=== PATIENT | female | born 1965 | race Caucasian/White ===

== ENCOUNTER 2016-06-01 11:18 | Inpatient (IN) | payer OTHER ==
[~2016-06-01] VITALS: Ht 154.9 cm; Wt 59.9 kg
[2016-06-01 13:07] LABS: BASOPHIL % 0.4 % (0-2); RED CELL DISTRIBUTION WIDTH 12.9 % (11.5-14.5)
[2016-06-01 13:08] LABS: PLATELET COUNT 460 x10^3mcL (130-400)
[2016-06-01 13:18] LABS: CALCIUM 8.6 mg/dL (8.5-10.1); CARBON DIOXIDE 27.8 mmol/L (21-32); CHLORIDE SERUM 101 mmol/L (98-107); CREATININE SERUM 0.5 mg/dL (0.6-1.0); GFR1 > 60 mL/min; GLUCOSE SERUM 301 mg/dL (74-106); POTASSIUM SERUM 3.5 mmol/L (3.5-5.1); SODIUM SERUM 137 mmol/L (136-145)
[2016-06-01 13:23] LABS: ALKALINE PHOSPHATASE 117 U/L (46-116); ALT/SGPT 20 U/L (14-59); AST/SGOT 4 U/L (15-37); BILIRUBIN TOTAL 0.58 mg/dL (0.20-1.00); HDL CHOLESTEROL 53 mg/dL (40-60); MAGNESIUM 1.6 mg/dL (1.8-2.4); PHOSPHOROUS 2.8 mg/dL (2.5-4.9); TOTAL PROTEIN, SERUM 7.3 g/dL (6.4-8.2)
[2016-06-01 13:25] LABS: ALBUMIN 3.1 g/dL (3.4-5.0); CHOLESTEROL 211 mg/dL (<200)
[2016-06-01 14:14] LABS: microscopic required? NO
[2016-06-01 14:27] LABS: urine erythrocyte NEGATIVE (NEGATIVE)
[2016-06-01 17:12] LABS: CHOLESTEROL/HDL RATIO 3.9
[2016-06-01 17:15] VITALS: BP 114/64
[2016-06-01 17:18] LABS: AMPHETAMINE QUAL UR NONE DETECTED (NEG <=1000)
[2016-06-01 17:20] LABS: FREE T4 1.12 ng/dL (0.76-1.46); FREE THYROXINE INDEX 2.5 ug/dL (1.4-4.5); T4(THYROXINE) 7.4 ug/dL (4.7-13.3)
[2016-06-01 18:14] LABS: T3 TOTAL 0.89 ng/mL
[2016-06-01 19:40] VITALS: BP 102/60
[2016-06-02 06:16] LABS: BASOPHIL % 0.6 % (0-2); RED CELL DISTRIBUTION WIDTH 12.5 % (11.5-14.5)
[2016-06-02 06:24] LABS: CALCIUM 8.6 mg/dL (8.5-10.1); CARBON DIOXIDE 26.2 mmol/L (21-32); CHLORIDE SERUM 105 mmol/L (98-107); CREATININE SERUM 0.5 mg/dL (0.6-1.0); GFR1 > 60 mL/min; GLUCOSE SERUM 291 mg/dL (74-106); MAGNESIUM 1.7 mg/dL (1.8-2.4); PHOSPHOROUS 3.8 mg/dL (2.5-4.9); SODIUM SERUM 138 mmol/L (136-145)
[2016-06-02 06:37] LABS: PLATELET COUNT 401 x10^3mcL (130-400)
[2016-06-02 06:44] VITALS: BP 112/67
[2016-06-02 07:35] VITALS: BP 112/61
[2016-06-02 14:55] VITALS: BP 102/51
[2016-06-02 18:37] VITALS: BP 108/63
[2016-06-02 21:44] VITALS: BP 112/61
[2016-06-03 05:58] VITALS: BP 110/59
[2016-06-03 06:42] LABS: CALCIUM 8.3 mg/dL (8.5-10.1); CHLORIDE SERUM 105 mmol/L (98-107); CREATININE SERUM 0.5 mg/dL (0.6-1.0); GFR1 > 60 mL/min; GLUCOSE SERUM 287 mg/dL (74-106); MAGNESIUM 1.7 mg/dL (1.8-2.4); PHOSPHOROUS 3.8 mg/dL (2.5-4.9); POTASSIUM SERUM 4.1 mmol/L (3.5-5.1); SODIUM SERUM 139 mmol/L (136-145)
[2016-06-03 08:27] LABS: BASOPHIL % 1.5 % (0-2); RED CELL DISTRIBUTION WIDTH 12.3 % (11.5-14.5)
[2016-06-03 08:37] LABS: PLATELET COUNT 451 x10^3mcL (130-400)
[2016-06-03 09:23] VITALS: BP 113/64
[2016-06-03] MEDS ORDERED: LIPI10 PO (09:26)
[2016-06-03] MEDS ORDERED: GLU5 PO (09:29)
[2016-06-03] MEDS ORDERED: METFORMIN HCL1000 MG PO (09:29)
[2016-06-03] MEDS ORDERED: ECO81 PO (09:29)
== END 2016-06-03 18:30 | disposition home or self-care (01) | DRG 48 ==
LOC: ED 11:18 → DU 16:16 → MU 16:16 → DU 17:01 → MU 06-03 08:33
PROVIDERS: Emergency Medicine; ADMIT Family Medicine
DX: G90.9 Disorder of the autonomic nervous system, unspecified (principal); E43 Unspecified severe protein-calorie malnutrition; D68.69 Other thrombophilia; E11.65 Type 2 diabetes mellitus with hyperglycemia; E83.42 Hypomagnesemia; I10 Essential (primary) hypertension; E78.5 Hyperlipidemia, unspecified; E78.00 Pure hypercholesterolemia, unspecified; F41.9 Anxiety disorder, unspecified; Z53.29 Procedure and treatment not carried out because of patient's decision for other reasons; I95.1 Orthostatic hypotension; Z68.23 Body mass index [BMI] 23.0-23.9, adult; Z79.84 Long term (current) use of oral hypoglycemic drugs; Z91.14 Patient's other noncompliance with medication regimen
CPT/HCPCS: 80307; 82962; 83880; 84439; G0480; J3475; J7030; Q0092; Q9967